=== PATIENT | male | born 1935 | race Caucasian/White ===

== ENCOUNTER 2017-02-11 12:43 | Inpatient (IN) | payer MEDICARE, BC ==
[~2017-02-11 12:43] MED LIST: ADVAIR 25028 BLISTE1 PO; AMLODIPINE BESY10 MG PO; AMPICILLIN SODIU2 GM IVPB; ARANESP10 MCG/0.4; ASPIRIN325 MG PO; ATORVASTATIN CA20 MG PO; CATAPRES0.2 M1 PO; CATAPRES0.2 MG PO; COZAAR100 M1 PO; CULTURELLE1 CA1 PO; DELTASONE20 MG PO; DYAZIDE 37.5/251 CAP PO; GENTAMICIN IV; LEVAQUIN500 MG PO; LEVAQUIN750 M1 PO; LIPITOR20 M1 PO; LOPRESSOR50 M1 PO; METOPROLOL TART50 MG PO; NORCO 5/3251 TA1 PO; NORCO 5/3251 TA2 PO; NORCO 5/3251 TAB PO; NORVASC5 M1 PO; NORVASC5 M2 PO; PARICALCITOL1 MC1 PO; PLAVIX75 M1 PO; PRILOSEC OTC20 M1 PO; RENVELA800 M1 PO; SYNTHROID50 MC1 PO; TYLENOL325 M2 PO; VENTOLIN HFA18 G2 PO; ZEGERID 40 MG P1 PKT PO
[2017-02-11 21:45] LABS: PROCALCITONIN 0.56 ng/ml (0.05-0.09)
[2017-02-12 05:52] LABS: BASO % 0.5 % (0-2); EOS % 2.9 % (0-7); EOSINOPHIL ABSOLUTE COUNT 0.2 tho/cmm (0.0-0.7); HCT-HEMATOCRIT 33.4 % (36.0-53.5); IMMATURE GRANULOCYTES ABSOLUTE 0.01 tho/cmm (0-0.03); IMMATURE GRANULOCYTES PERCENT 0.2 % (0-0.3); LYMPH % 12.2 % (20-45); LYMPH ABSOLUTE COUNT 0.8 tho/cmm (0.8-4.5); MCH (MEAN CORPUSCULAR HGB) 27.4 pg (28.0-32.0); MCHC MEAN CORPUSCULAR HGB CONC 29.9 % (32.0-36.0); MCV (MEAN CELL VOLUME) 91.5 fl (82.0-96.0); MONO % 14.2 % (0-12); MONOCYTE ABSOLUTE COUNT 0.9 tho/cmm (0.0-1.2); NEUTROPHIL ABSOLUTE COUNT 4.6 tho/cmm (1.6-8.0); NEUTROPHIL-AUTOMATED 4.6 tho/cmm (1.6-8.0); PLATELET COUNT 217 tho/cmm (150-450); RED BLOOD COUNT 3.65 mil/cmm (4.40-5.70); RED CELL DISTRIBUTION WIDTH 16.5 % (12.4-16.4); WHITE BLOOD COUNT 6.5 tho/cmm (4.0-10.0)
[2017-02-12 06:10] LABS: ANION GAP 14 mmol/L (0-20); BLOOD UREA NITROGEN 24 mg/dl (6-24); CALCIUM 8.9 mg/dl (8.5-10.5); CARBON DIOXIDE-VENOUS 28 mmol/L (22-32); CHLORIDE 100 mmol/l (96-110); CREATININE 5.92 mg/dl (0.60-1.30); GLUCOSE 91 mg/dL (70-110); PHOSPHOROUS 3.9 mg/dl (2.5-4.9); POTASSIUM 3.8 mmol/L (3.7-5.1); SODIUM 138 mmol/L (135-145); eGFR VALUE FOR BLACK 9 mL/Min
[2017-02-12 13:29] LABS: PROCALCITONIN 0.84 ng/ml (0.05-0.09)
[2017-02-13 05:59] LABS: HCT-HEMATOCRIT 32.2 % (36.0-53.5); HGB-HEMOGLOBIN 9.6 gm/dl (13.5-17.0); MCV (MEAN CELL VOLUME) 92.5 fl (82.0-96.0); PLATELET COUNT 226 tho/cmm (150-450); RED CELL DISTRIBUTION WIDTH 16.7 % (12.4-16.4)
[2017-02-13 06:11] LABS: ANION GAP 13 mmol/L (0-20); CALCIUM 9.3 mg/dl (8.5-10.5); CARBON DIOXIDE-VENOUS 30 mmol/L (22-32); CHLORIDE 102 mmol/l (96-110); GLUCOSE 85 mg/dL (70-110); MAGNESIUM 2.2 mg/dl (1.8-2.6); POTASSIUM 4.5 mmol/L (3.7-5.1); SODIUM 140 mmol/L (135-145)
[2017-02-13 06:12] LABS: BLOOD UREA NITROGEN 40 mg/dl (6-24)
[2017-02-13 06:13] LABS: CREATININE 7.94 mg/dl (0.60-1.30); PHOSPHOROUS 5.7 mg/dl (2.5-4.9); eGFR VALUE FOR BLACK 7 mL/Min
[2017-02-14] MEDS ORDERED: NORVASC10 M2 PO (12:46)
== END 2017-02-14 14:25 | DRG 291 ==
LOC: CCU 12:43
PROVIDERS: Internal Medicine; Internal Medicine Critical Care Medicine; Internal Medicine Nephrology; ADMIT Internal Medicine
PROC: 5A1D60Z (ICD-10-PCS; principal; 2017-02-11)
PROC: B246ZZZ Ultrasonography of Right and Left Heart (ICD-10-PCS; 2017-02-11)
PROC: B245ZZZ Ultrasonography of Left Heart (ICD-10-PCS; 2017-02-14)
DX: I13.2 Hypertensive heart and chronic kidney disease with heart failure and with stage 5 chronic kidney disease, or end stage renal disease (principal); J96.01 Acute respiratory failure with hypoxia; E87.2 Acidosis; N18.6 End stage renal disease; I50.1 Left ventricular failure, unspecified; I34.0 Nonrheumatic mitral (valve) insufficiency; D64.9 Anemia, unspecified; E78.5 Hyperlipidemia, unspecified; I35.0 Nonrheumatic aortic (valve) stenosis; G47.33 Obstructive sleep apnea (adult) (pediatric); M10.9 Gout, unspecified; M19.90 Unspecified osteoarthritis, unspecified site; D72.829 Elevated white blood cell count, unspecified; E03.9 Hypothyroidism, unspecified; I73.9 Peripheral vascular disease, unspecified; K21.9 Gastro-esophageal reflux disease without esophagitis; Z99.2 Dependence on renal dialysis; Z87.891 Personal history of nicotine dependence; Z79.51 Long term (current) use of inhaled steroids; Z79.02 Long term (current) use of antithrombotics/antiplatelets; Z79.899 Other long term (current) drug therapy
CPT/HCPCS: A9500; C8924; C8929; J0885; J1650; J1940; J2785